=== PATIENT | male | born 1980 | race Caucasian/White ===

== ENCOUNTER 2021-11-14 14:51 | Emergency (ER) | payer OTHER, SELFPAY ==
[2021-11-14] MEDS ORDERED: Acetaminophen 500 MG TAB ONE (15:15)
[2021-11-14] MEDS ORDERED: Boostrix 0.5 ML (Tdap) VIAL ONE (15:15)
[2021-11-14] MEDS ORDERED: Ketorolac Tromethamine 30 MG/ML VIAL ONE (15:15)
== END 2021-11-14 16:01 | disposition home or self-care (01) ==
LOC: BURERS 14:51
DX: S01.01XA Laceration without foreign body of scalp, initial encounter (principal); I10 Essential (primary) hypertension; F17.210 Nicotine dependence, cigarettes, uncomplicated; Z79.899 Other long term (current) drug therapy; V43.53XA Car driver injured in collision with pick-up truck in traffic accident, initial encounter
CPT/HCPCS: 12001; 70450; 72125; 90471; 90715; 96374; J1885